=== PATIENT | female | born 1985 ===

== ENCOUNTER 2017-09-19 14:56 | Emergency (ER) | payer SELFPAY | END 2017-09-19 16:03 | disposition home or self-care (01) | LOC: ERS 14:56 | DX: O99.612 Diseases of the digestive system complicating pregnancy, second trimester (principal); K13.0 Diseases of lips; O99.342 Other mental disorders complicating pregnancy, second trimester; F41.9 Anxiety disorder, unspecified | CPT/HCPCS: 99282 ==

== ENCOUNTER 2017-09-19 16:07 | Day surgery (SDC) | payer SELFPAY ==
[2017-09-19 16:55] VITALS: BMI 37.1
[2017-09-19 16:58] VITALS: BP 131/77; TEMP 98.6
[2017-09-19] MEDS ORDERED: FLU VACC QS2017-18 36 mo. & older 0.5 ML SYRINGE IM ONE (17:15)
[2017-09-19 17:27] LABS: #Basophils 0.1 thou/uL (0.0-0.2); #Eosinphils 0.1 thou/uL (0.0-0.7); #Lymphocytes 2.5 thou/uL (1.20-3.40); #Monocytes 0.5 thou/uL (0.11-0.59); #Neutrophils 8.3 thou/uL (1.40-6.50); %Basophils 0.5 % (0.0-1.0); %Eosinophils 0.6 % (0.0-10.0); %Lymphocytes 21.7 % (21.0-51.0); %Monocytes 4.5 % (0.0-10.0); Hematocrit 34.3 % (36.0-47.0); Mean Platelet Volume 7.2 fL (7.4-10.4); Red Blood Cell (RBC) Count 4.21 mill/uL (4.20-5.40); White Blood Cell (WBC) Count 11.4 thou/uL (4.8-10.8)
[2017-09-19 17:29] LABS: Bilirubin Negative (Negative); Blood, Urine Negative (Negative); Glucose, Urine (Dipstick) Negative (Negative); Ketone, Urine 15 mg/dL (Negative); Nitrite Negative (Negative); Protein, Urine (Dipstick) Negative (Neg-Trace)
[2017-09-19 17:32] LABS: Bacteria/HPF None Seen HPF (None Seen); Hyaline Casts/LPF 0-3 HYALINE CAST LPF (0-3 Hyaline); RBC/HPF 0-3 HPF (0-3); Squamous Epithelial 0-3 HPF (0-3); WBC/HPF 0-3 HPF (0-3)
[2017-09-19 17:38] LABS: Amphetamine Not Detected (NotDetected); Methadone Not Detected (NotDetected); Methamphetamine Not Detected (NotDetected)
[2017-09-19 17:39] LABS: Anion Gap 15 mmol/L (10-20); BUN (Urea Nitrogen) 7 mg/dL (7.0-18.7); Calc. Creatinine Clearance 234 mL/min (70-130); Carbon Dioxide 21 mmol/L (22-29); Chloride 103 mmol/L (98-107); Estimated GFR-MDRD Greater than 90
[2017-09-19] MEDS ORDERED: Acetaminophen 325 MG TAB PO PRN (18:59)
--- NOTE | 2017-09-19 19:18 | ULT ---
OBSTETRIC SONOGRAM 09/19/17 HISTORY: No care. Evaluate for size and dates. FINDINGS: Urinary bladder is decompressed. Multiple transabdominal sonographic views of the gravid uterus show a single intrauterine gestation in cephalic presentation. The cervix is closed and 4.2 cm. Grade II p lacenta is anterior. Amniotic fluid is within normal limits. No gross intracranial abnormalities are apparent. spine and kidneys are intact as visualized. Four chamber heart shows motion at 147 b eats per minute. Three vessel cord shows a normal insertion. MEASUREMENTS ARE FOLLOWS: Biparietal diameter 25 weeks, 5 days Head circumference 25 weeks, 0 days Abdominal circumference 26 weeks, 0 days Femur length 25 weeks, 6 days Estimated date of delivery based on today's sonogram is 12/31/17. IMPRESSION: Single viable intrauterine gestation with estimated gestational age based on today's sonogram of 25 w eeks, 2 days. POS: [facility]
--- NOTE | 2017-09-19 23:39 | PRG ---
OB ED NOTE DATE OF SERVICE: 09/19/2017 TIME OF CARE: 1900 hours. PRESENTING COMPLAINT: No care, lip sore. HISTORY OF PRESENT ILLNESS: Ms. Ritchie is a 32-year-old 11, para 9, AB 1 at 24 weeks by sunny ornelas EDD, who was seen in the emergency room for a sore on her lip. It was evaluated and thought to b e a cold sore; however, since the patient had not had any care, she was sent to [facility] for further evaluation. [employer] HISTORY: x9 and SAB x1. history includes inductions for most of her pregnancies. Two of them were for hypertension and the others were for post-term. She denies other complication s with her pregnancies. PAST MEDICAL HISTORY: Denies. PAST SURGICAL HISTORY: Denies. ALLERGIES: Denies. MEDICATIONS: vitamins. SOCIAL HISTORY: Denies tobacco, alcohol or drug use. FAMILY HISTORY: Noncontributory. REVIEW OF SYSTEMS: Noncontributory. PHYSICAL EXAMINATION: GENERAL: female, in no acute distress. VITAL SIGNS: Temperature 98.6, blood pressure 131/77, pulse 86 and respirations 18. HEENT: Within normal limits. LUNGS: Clear to auscultation bilaterally. HEART: Regular rhythm. ABDOMEN: Soft and nontender. Fundal height 25 cm. FHTs 140s. PELVIC: Vulva without lesions. Vaginal and cervical exam deferred. EXTREMITIES: Without clubbing, cyanosis or edema. IMAGING DATA: Ultrasound with composite gestational age of 25 weeks 2 days, EDC 12/31/2017 1 pound 1 4 ounces, cephalic presentation and OH of 14, anterior placenta. LABORATORY DATA: Urine drug screen negative. Hematocrit 34%, normal platelet count. Blood type is A positive. Antibody negative. Base met within normal limits. Urinalysis within normal limits. Sy philis nonreactive, hepatitis B and HIV nonreactive. IMPRESSION: A 24 weeks gestation by first trimester ultrasound agreeing with this today. No prenata l care. PLAN: Discharge home. The patient is instructed to follow up with the Clinic next week. E R precautions.
[2017-09-20] MEDS ORDERED: Ferrous Sulfate 325 MG TAB PO SCH (09:00)
== END 2017-09-19 19:00 | disposition home or self-care (01) ==
LOC: L&D/OP 16:07
PROVIDERS: ATTEND Obstetrics & Gynecology
DX: O09.32 Supervision of pregnancy with insufficient antenatal care, second trimester (principal); O99.89 Other specified diseases and conditions complicating pregnancy, childbirth and the puerperium; K13.70 Unspecified lesions of oral mucosa; O10.012 Pre-existing essential hypertension complicating pregnancy, second trimester; Z79.899 Other long term (current) drug therapy; Z3A.24 24 weeks gestation of pregnancy
CPT/HCPCS: 36415; 76805; 80048; 80306; 81001; 86762; 86780; 86850; 86900; 86901; 87340; 87389